=== PATIENT | male | born 1970 | race Two or more races ===

== ENCOUNTER 2020-01-29 11:41 | Day surgery (SDC) | payer OTHER, SELFPAY ==
[2020-01-09 11:35] VITALS: BMI 23.6
--- NOTE | 2020-01-15 09:49 | P.CONAN_ITS ---
HPI - Anesthesia Eval Consult details Narrative: 49yo M Upper Endoscopy and Colonoscopy [facility] Past Medical History Medical History GERD (gastroesophageal reflux disease) Surgical History Surgical History No significant past surgical history Social History Social History Smoking Status: Former smoker Meds Allergies Allergy/AdvReac Type Severity Reaction Status Date / Time No Known Allergies Allergy Unverified 01/09/20 11:33 [No Known Allergies*] Home Medications Medication Instructions Recorded Confirmed Type acetaminophen 1,000 mg PO QID PRN 01/09/20 01/09/20 History famotidine 40 mg PO DAILY 01/09/20 01/09/20 History multivitamin 1 cap PO DAILY 01/09/20 01/09/20 History Exam Exam Date and Time: January 15, 2020 0949 Height,Weight and Vital Signs: Height 5 ft 8 in Weight 70.307 kg Assessment and Plan Assessment Anesthesia Assessment: Chart Reviewed
--- NOTE | 2020-01-26 09:25 | HO.ANESPROP2 ---
Documented by User: Mary Cuadra 01/26/20 09:25 HPI - Anesthesia Eval Consult details Narrative: 49yo M for Upper Endoscopy and Colonoscopy [facility] Past Medical History Medical History GERD (gastroesophageal reflux disease) Surgical History Surgical History No significant past surgical history Social History Social History Smoking Status: Former smoker Smoking Quit Date: 07/2019 Use of substances other than those prescribed or required for medical reasons: No Advance Directives: No Advance Directives Information Provided: No Advance Directives on File: No Meds Allergies Allergy/AdvReac Type Severity Reaction Status Date / Time No Known Allergies Allergy Unverified 01/09/20 11:33 [No Known Allergies*] Home Medications Medication Instructions Recorded Confirmed Type acetaminophen 1,000 mg PO QID PRN 01/09/20 01/09/20 History multivitamin 1 cap PO DAILY 01/09/20 01/09/20 History Exam Exam Date and Time: January 26, 2020 0925 Height,Weight and Vital Signs: Height 5 ft 8 in Weight 70.307 kg Assessment and Plan Assessment Anesthesia Assessment: Chart Reviewed Documented by User: Kayla Sanchez 01/29/20 12:58 [facility] Past Medical History Medical History GERD (gastroesophageal reflux disease) Family History Family history of problems with anesthesia: No Surgical History Surgical History No significant past surgical history History of Problems with Anesthesia: No Social History Social History Smoking Status: Former smoker Smoking Quit Date: 07/2019 Use of substances other than those prescribed or required for medical reasons: No Advance Directives: No Advance Directives Information Provided: No Advance Directives on File: No Meds Allergies Allergy/AdvReac Type Severity Reaction Status Date / Time No Known Allergies Allergy Unverified 01/09/20 11:33 [No Known Allergies*] Home Medications Medication Instructions Recorded Confirmed Type acetaminophen 1,000 mg PO QID PRN 01/09/20 01/09/20 History multivitamin 1 cap PO DAILY 01/09/20 01/09/20 History Exam Height,Weight and Vital Signs: Vital Signs Temp Pulse Resp BP Pulse Ox 01/29/20 12:15 97.4 F 75 18 117/68 99 Airway Mallampati Class: I TM Dist: >3cm Neck ROM: Full Heart: RRR Lungs: CTAB Assessment and Plan Assessment Anesthesia Assessment: Anesthesia Plan Discussed and Chart Reviewed Final Anesthetic Review NPO: Yes ASA Class: II Final Preanesthetic Review: No Changes in Pt Med Stat, Meds/Allgs Chart Reviewed and Consent Obtained/Reviewed Patient Risk: Low Anesthetic Plan Anesthetic Plan: MAC: Disposition: Standard PACU
[2020-01-29 12:15] VITALS: BP 117/68; PULSE 75; RESP 18; TEMP 36.3; O2SAT 99
[2020-01-29] MEDS: Lactated Ringers 1,000 ML 100 ML IVCONT (12:18)
--- NOTE | 2020-01-29 12:19 | W.PM.OPN ---
Operative Note Operative Note Date of Service: 01/29/20 Narrative: Pre-op diagnosis: Colon cancer screening, GERD (on Nexium twice dailly and sucralfate 4 times a day) Procedure: FLEXIBLE TRANSORAL UPPER GASTROINTESTINAL ENDOSCOPY WITH BIOPSIES AND COLONOSCOPY TILL CECUM WITH BIOPSIES UPPER ENDOSCOPY Consent: Indications for the procedure and potential complications of bleeding, perforation, reaction to medications and missed diagnosis were discussed with the patient and informed consent was obtained. Instrument: Olympus GIF H 190 mid size upper endoscope Monitoring: Vital signs and clinical assessment, continuous EKG monitoring, Pulse oximetry, Carbon Dioxide monitoring and blood pressure monitoring were done throughout the procedure. Procedure: The patient was placed in the left lateral decubitis position and pre-procedure medications were administered and a bite block was placed. The endoscope was inserted into the mouth and advanced under direct vision to the third part of duodenum. A careful inspection was made as the upper endoscope was withdrawn including a retroflexed examination of the proximal stomach; Findings and interventions are described below. Findings: Larynx: Normal Esophagus: GE junction at 38 cms. No esophagitis or Mensah's. Biopsies were obtained from proximal esophagus to check for EOE.. Stomach: Patchy gastric erythema with a few antral erosions. Biopsies were obtained from the gastric antrum and body of the stomach. Grade 2 flap valve on retroflexed examination of the cardia. Duodenum: Normal bulb and descending duodenum Intervention: Biopsies as noted above COLONOSCOPY PROCEDURE NOTE Consent: Indications for the procedure and potential complications of bleeding, perforation, reaction to medications and missed diagnosis were discussed with the patient and informed consent was obtained. Instrument: Olympus PCF H 190 L variable stiffness pediatric colonoscope Monitoring: Vital signs and clinical assessment, intermittent blood pressure monitoring, continuous EKG monitoring, Pulse oximetry and Carbon Dioxide monitoring were done throughout the procedure. Colon withdrawl time was 22 minutes. Procedure: The patient was placed in the left lateral decubitis position and pre-procedure medications were administered. After a digital rectal examination of the ano-rectum, the video colonoscope was inserted into the rectum and advanced through the colon to the cecum. The colonoscope was slowly withdrawn in a retrograde panoramic fashion and the colon mucosa was carefully examined including a retroflexed view of the rectum. Findings and interventions are described below. Procedure Difficulty: Without difficulty Findings: Terminal Ileum: Not evaluated Cecum: Normal Ascending Colon: A 3-4 mm polyp removed with a cold biopsy Transverse Colon: Two 3-4 mm sessile polyps removed with a cold biopsy. Descending Colon: Normal Sigmoid Colon: Moderate diverticulosis Rectum: Normal Ano-rectum: Moderate internal hemorrhoids Colon preparation: Good after some irrigation Impression and Post Procedure Diagnosis: Endoscopy Findings: ESOPHAGUS: GE junction at 38 cms. No esophagitis or Mensah's. Biopsies were obtained from proximal esophagus to check for EOE. STOMACH: Patchy gastric erythema with a few antral erosions. Biopsies were obtained from the gastric antrum and body of the stomach. Colonoscopy Findings: Three small diminutive appearing polyps removed Moderate diverticulosis seen in the sigmoid colon Moderate hemorrhoids on retroflexed exam. Plan: Await pathology results Patient has an appointment on 02/27/20 in the GI Clinic with PATY Pond. Pt reports breakthrough symptoms despite taking Nexium twice daily and sucralfate 4 times daily. Advise further evaluation with impedance testing (Off PPI) to check for presence of GERD versus functional heartburn versus acid hypersensitivity as etiology for patient's persistent symptoms. Smoking is likely contributing to continuing symptoms despite high-dose PPI Repeat Colonoscopy interval based on path results - in 3-5 years if polyps are adenomatous and 10 years if polyps are hyperplastic. Above findings were reviewed with the patient and colon polyps and diverticulosis handouts were given in the discharge area Surgeon: Eduard Badillo MD Anesthesia: MAC (JUAN Sotomayor) Estimated blood loss (mL): 0 Pathology: other (A. Gastric antrum, B. Gastric body, C. Proximal esophagus, D. AC polyp x 1, E. TC polyps x 2) Condition: stable Disposition: PACU
--- NOTE | 2020-01-29 12:19 | MHC.SHP ---
Pre-Procedural Eval Section A The patient is an INPATIENT: No The History & Physical has been completed within 30 days and I have reviewed it.: No Section B Chief Complaint: GERD,SCREENING Details of Present Illness: A 49-year-old male years acid reflux worsening however the past year. lansoprazole 40 mg for about 3 years- Saw PCP years-last month He has increased to twice daily. Sucralfate-QID- seems to offer some relief. Frequent heartburn- he does have frequent nausea however he does not vomit. His appetite has not great. Is unable to worsens his symptoms. Tylenol prn-ear pain-has ENT appointment. He has nausea without vomiting no abdominal pain fever chills. He has a he has never a screening colonoscopy. Had EGD in [facility] greater than 5 years ago, no details, unsure of actual report. Relevant Social History: Tobacco Use Present Medications: see Short Stay Collaborative assessment Medical History: Significant History (GERD, anxiety) Allergies: Allergies Allergy/AdvReac Type Severity Reaction Status Date / Time No Known Allergies Allergy Unverified 01/09/20 11:33 [No Known Allergies*] Review of Systems Sugical H&P ROS: Negative: Constitution, Cardiovascular and Respiratory and Yes, Specify: Gastrointestinal (Heartburn) Exam Surgical H&P Exam: Normal: Heart, Normal: Lungs and Normal: Extremities Plan Diagnosis/Plan: Unchanged Patient has been examined and remains a candidate for the planned procedure
[2020-01-29 13:30] VITALS: BP 96/64; PULSE 55; RESP 16; TEMP 35.8; O2SAT 100
[2020-01-29 13:45] VITALS: BP 101/54; PULSE 65; RESP 16; TEMP 35.8; O2SAT 98
== END 2020-01-29 14:35 | disposition home or self-care (01) ==
PROVIDERS: PCP Internal Medicine; Visit Provider Internal Medicine Gastroenterology
PROC: (CPT 45380; principal; 2020-01-29 12:40)
DX: Z12.11 Encounter for screening for malignant neoplasm of colon (principal); D12.3 Benign neoplasm of transverse colon; K63.5 Polyp of colon; K57.30 Diverticulosis of large intestine without perforation or abscess without bleeding; K64.8 Other hemorrhoids; K29.70 Gastritis, unspecified, without bleeding; K21.9 Gastro-esophageal reflux disease without esophagitis; Z79.899 Other long term (current) drug therapy
CPT/HCPCS: 45380; 43239; 88305; 88342

== ENCOUNTER → 2020-02-28 11:25 | Outpatient (BNVA) | payer OTHER, SELFPAY | PROVIDERS: PCP Internal Medicine; Visit Provider Physician Assistant | DX: Z76.89 Persons encountering health services in other specified circumstances (principal) ==

== ENCOUNTER 2020-03-14 13:50 | Outpatient (REF) | payer OTHER, SELFPAY ==
--- NOTE | 2020-03-14 | US_ITS ---
EXAMINATION: US RETROPERITONEAL LIMITED (RENAL ONLY) CLINICAL INFORMATION: Abdominal pain. COMPARISON: None TECHNIQUE: Sonographic evaluation of the kidneys. FINDINGS: RIGHT KIDNEY: 11.9 x 4.9 x 6.3 cm (SAG x AP x TRV). The kidney is normal in size, contour, and echogenicity. Renal cortical thickness is normal. No calculi or focal parenchymal lesions. Mild fullness of the collecting system. LEFT KIDNEY: 11.1 x 5.2 x 5.2 cm (SAG x AP x TRV). The kidney is normal in size, contour, and echogenicity. Renal cortical thickness is normal. No calculi or focal parenchymal lesions. Mild fullness of the collecting system. US/US renal BI IMPRESSION: Mild calyceal fullness bilaterally. No calculi visualized.
== END 2020-03-14 13:51 | disposition home or self-care (01) ==
LOC: HO.HMGCX 13:50
PROVIDERS: PCP Internal Medicine; Visit Provider Internal Medicine
DX: R10.9 Unspecified abdominal pain (principal)
CPT/HCPCS: 76775

== ENCOUNTER → 2020-04-09 16:03 | Outpatient (BNVA) | payer OTHER, SELFPAY | PROVIDERS: PCP Internal Medicine; Visit Provider Internal Medicine Gastroenterology | DX: Z13.89 Encounter for screening for other disorder (principal) | CPT/HCPCS: Q3014 ==

== ENCOUNTER 2020-04-12 09:44 | Outpatient (REF) | payer OTHER, SELFPAY ==
--- NOTE | ~2020-04-12 | FL_ITS ---
EXAMINATION: FL BARIUM SWALLOW CLINICAL INFORMATION: Gastroesophageal reflux disease without esophagitis COMPARISON: None TECHNIQUE: Barium swallow examination is performed using fluoroscopic evaluation in addition to multiple fluoroscopic spot views. The patient is imaged both upright and prone and using both thick and thin sulfate along with effervescent granules. A barium tablet was also administered. Fluoroscopy time: 1.2 minutes DAP: 7.9 Gycm2 Images: 59 saved fluoroscopic images FINDINGS: The swallowing mechanism is normal. No aspiration or penetration is seen. Esophageal motility is normal. There is mild gastroesophageal reflux. There is a small sliding-type hiatal hernia. No mass or stricture is seen. Barium tablet passed the stomach. The visualized stomach and duodenum are unremarkable. FL/FL barium swallow IMPRESSION: Mild gastroesophageal reflux and small sliding-type hiatal hernia.
[2020-04-12 11:42] LABS: MANUAL DIFF FLAG NO
[2020-04-12 11:53] LABS: Basophils Absolute Auto 0.1 X10*3/uL (0.0-0.2); Basophils Percent Auto 0.8 % (0-2); Eosinophils Absolute Auto 0.3 X10*3/uL (0.0-0.4); Eosinophils Percent Auto 3.6 % (0-4); Hematocrit 39.9 % (42-52); Imm Gran Abs Auto 0.02 X10*3/uL (0.00-0.03); Imm Gran Pct Auto 0.3 % (0.0-0.4); Lymphocytes Absolute Auto 2.3 X10*3/uL (1.2-4.9); Lymphocytes Percent Auto 30.1 % (20-40); Mean Corpuscular HGB Conc 32.6 g/dl (31.0-36.0); Mean Corpuscular Hemoglobin 24.8 pg (27.0-33.0); Mean Platelet Volume 9.7 fL (9.4-12.4); Monocytes Absolute Auto 0.7 X10*3/uL (0.1-1.2); Neutrophils Absolute Auto 4.3 X10*3/uL (2.0-8.3); Neutrophils Percent Auto 56.2 % (45-73); Platelet Count 363 X10*3/uL (160-400); Red Blood Count 5.25 X10*6/uL (4.60-5.80); Red Cell Distribution Width 13.4 % (11.0-16.0); White Blood Count 7.6 X10*3/uL (4.8-10.8)
[2020-04-12 12:31] LABS: Vitamin D 25-OH Total 33.3 ng/mL (>30)
[2020-04-12 12:58] LABS: Alanine Aminotransferase 38 U/L (0-40); Albumin Level 4.5 g/dL (3.5-5.0); Alkaline Phosphatase 110 U/L (39-117); Anion Gap 13 (12-20); Aspartate Amino Transferase 23 U/L (5-37); Bilirubin Total 0.4 mg/dL (0.0-1.0); Blood Urea Nitrogen 9 mg/dL (9-16); Carbon Dioxide 29 mmol/L (22-29); Chloride 101 mmol/L (96-108); Estimated Glomerular Filt Rate > 60; Glucose Random 96 mg/dL (60-115); Potassium 4.1 mmol/L (3.3-5.1); Sodium 139 mmol/L (135-145); Total Protein 7.8 g/dL (6.5-8.0)
[2020-04-12 14:12] LABS: Folate 8.3 ng/mL (> or = 4.0); Vitamin B12 224 pg/mL (200-900)
== END 2020-04-12 09:45 | disposition home or self-care (01) ==
LOC: HO.XRAY 09:44
PROVIDERS: PCP Internal Medicine; Visit Provider Internal Medicine Gastroenterology
DX: K21.9 Gastro-esophageal reflux disease without esophagitis (principal); R14.0 Abdominal distension (gaseous)
CPT/HCPCS: 36415; 74220; 80053; 82306; 82607; 82746; 85025; 86140

== ENCOUNTER 2020-05-16 14:00 | Outpatient (RCR) | payer OTHER, SELFPAY ==
--- NOTE | 2020-05-09 12:57 | MHC.PT.EP ---
[facility] [place] Office [place] Office [place] Office [address] [phone] F: [phone] F: [phone] F: [phone] F: [phone] Physical Therapy Plan of Care Date of Evaluation: 05/09/20 Date of Surgery: n/a Diagnosis: neck pain/muscle spasm Assessment: Patient is a 49 year old R handed male who presents with s/s consistent with neck pain, neck spasm. 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 Patient past medical history includes anxiety, insomnia. Current impairments include pain, ROM, posture, activity tolerance and functional mobility. Functional limitations include decreased ability to sleep, turn head, drive, sit at computer, and work. Patient is motivated with good rehab potential. Skilled PT will address impairments and functional limitations in order to achieve goals. Frequency and Duration: The patient will be seen 2x/week for 4 weeks Short Term Goals: I with HEP - 2 weeks AROM rotation to 55 b/l - 3 weeks improved postural awareness - 3 weeks Halfway Goals: pain free work day - [address] pain free - 4 weeks sleep undisturbed from back pain - 4 weeks Treatment Plan: Modalities to reduce pain, spasms and effusion. Manual therapy to restore motion and function. Therapeutic exercise to improve strength and flexibility. Neuromuscular re-education for posture and balance. Therapeutic activities to return to functional activities of daily living. Electronically signed by: Onesimo Crawford, PT Please sign and return to therapist. Thank you for your referral.
--- NOTE | 2020-06-28 13:51 | MHC.PT.DC ---
[facility] [place] Office [place] Office [place] Office [address] [facility] [phone] F: [phone] F: [phone] F: [phone] F: [phone] Physical Therapy Discharge Report Diagnosis: neck pain/muscle spasm Date of Surgery: n/a Date of Evaluation: 05/09/20 Date of Discharge: 05/19/20 Treatments to Date: 3 Cancellations to Date: 0 No Shows to Date: 0 Discharge Status: Visit Non-compliance Discharge Summary: Inconsistent attendance, discharged as a result. Electronically signed by: Onesimo Crawford PT Please sign and return to therapist. Thank you for your referral.
== END 2020-07-06 10:48 | disposition home or self-care (01) ==
LOC: HO.PTCHIC 14:00
PROVIDERS: PCP Internal Medicine; Visit Provider Internal Medicine
DX: M62.838 Other muscle spasm (principal)
CPT/HCPCS: 97110; 97140; 97161

== ENCOUNTER → 2020-06-17 08:42 | Outpatient (BNVA) | payer OTHER, SELFPAY | PROVIDERS: PCP Internal Medicine; Visit Provider Internal Medicine Gastroenterology ==

== ENCOUNTER 2020-10-10 | Outpatient (REF) | payer OTHER, SELFPAY ==
[2020-10-14 14:42] LABS: OBS1 NEGATIVE (NEGATIVE); OBS2 NEGATIVE (NEGATIVE); OBS3 NEGATIVE (NEGATIVE)
[2020-10-14 14:43] LABS: OBS Int Ctl Valid YES; OBS Lot 50191
== END 2020-10-10 00:01 | disposition home or self-care (01) ==
LOC: HO.LNP
PROVIDERS: Visit Provider Internal Medicine Gastroenterology
DX: D50.9 Iron deficiency anemia, unspecified (principal)
CPT/HCPCS: 82270

== ENCOUNTER 2020-10-14 14:31 | Outpatient (REF) | payer OTHER, SELFPAY | END 2020-10-14 14:32 | disposition home or self-care (01) | LOC: HO.LNP 14:31 | PROVIDERS: Visit Provider Internal Medicine Gastroenterology | DX: Z13.89 Encounter for screening for other disorder (principal) ==

== ENCOUNTER 2020-11-13 12:07 | Outpatient (REF) | payer OTHER, SELFPAY ==
[2020-11-13 12:20] LABS: MANUAL DIFF FLAG NO
[2020-11-13 12:40] LABS: Basophils Absolute Auto 0.1 X10*3/uL (0.0-0.2); Basophils Percent Auto 1.1 % (0-2); Eosinophils Absolute Auto 0.3 X10*3/uL (0.0-0.4); Eosinophils Percent Auto 4.6 % (0-4); Hematocrit 39.6 % (42-52); Hemoglobin 13.1 g/dl (14.0-18.0); Imm Gran Abs Auto 0.02 X10*3/uL (0.00-0.03); Imm Gran Pct Auto 0.3 % (0.0-0.4); Lymphocytes Absolute Auto 2.8 X10*3/uL (1.2-4.9); Lymphocytes Percent Auto 37.8 % (20-40); Mean Corpuscular HGB Conc 33.1 g/dl (31.0-36.0); Mean Corpuscular Hemoglobin 25.4 pg (27.0-33.0); Mean Corpuscular Volume 76.9 fL (80-98); Mean Platelet Volume 9.8 fL (9.4-12.4); Monocytes Absolute Auto 0.6 X10*3/uL (0.1-1.2); Monocytes Percent Auto 8.2 % (2-11); Neutrophils Absolute Auto 3.6 X10*3/uL (2.0-8.3); Platelet Count 323 X10*3/uL (160-400); Red Blood Count 5.15 X10*6/uL (4.60-5.80); Red Cell Distribution Width 13.6 % (11.0-16.0); White Blood Count 7.4 X10*3/uL (4.8-10.8)
[2020-11-13 13:02] LABS: Iron 106 mcg/dL (45-160); Percent Iron Saturation 33 % (15-50); Total Iron Binding Capacity 323 mcg/dL (228-428); Unsaturated Iron Binding 217 ug/dL
[2020-11-13 13:37] LABS: Ferritin 90 ng/mL (20-250)
== END 2020-11-13 12:08 | disposition home or self-care (01) ==
LOC: HO.LAB 12:07
PROVIDERS: PCP Internal Medicine; Visit Provider Internal Medicine Gastroenterology
DX: D50.9 Iron deficiency anemia, unspecified (principal)
CPT/HCPCS: 36415; 82728; 83540; 85025

== ENCOUNTER → 2020-12-16 08:58 | Outpatient (BNVA) | payer OTHER, SELFPAY | PROVIDERS: PCP Internal Medicine; Referring Provider Internal Medicine; Visit Provider Internal Medicine Gastroenterology ==

== ENCOUNTER 2021-10-30 15:22 | Outpatient (REF) | payer OTHER, SELFPAY ==
--- NOTE | ~2021-10-30 | US_ITS ---
EXAMINATION: US VENOUS ULTRASOUND WITH DOPPLER LOWER EXTREMITY, BILATERAL CLINICAL INFORMATION: Bilateral leg pain COMPARISON: None TECHNIQUE: Ultrasound of the deep veins is performed from the hip to the calf with compression sonography and color and pulse Doppler assessment. Spectral analysis with color-flow imaging is performed. FINDINGS: RIGHT: There is normal venous compression and respiratory variation and augmented flow. The visualized common femoral vein, superficial femoral vein, profunda femoral vein, popliteal vein, and the trifurcation region shows no evidence of deep venous thrombosis. There is no significant popliteal fossa cyst. Mildly prominent lymph node in the right inguinal region which measures approximately 2.0 x 2.1 x 0.6 cm, nonspecific. LEFT: There is normal venous compression and respiratory variation and augmented flow. The visualized common femoral vein, superficial femoral vein, profunda femoral vein, popliteal vein, and the trifurcation region shows no evidence of deep venous thrombosis. There is no significant popliteal fossa cyst. Mildly prominent lymph node in the left inguinal region which measures approximately 1.5 x 2.3 x 0.6 cm, nonspecific. If the patient's symptoms persist, followup ultrasound in 5 days 7 days might be of value to exclude proximal propagation from a non-visualized calf vein. US/US venous duplex LE BI IMPRESSION: No DVT demonstrated in the bilateral lower extremity.
== END 2021-10-30 15:23 | disposition home or self-care (01) ==
LOC: HO.US 15:22
PROVIDERS: PCP Internal Medicine; Visit Provider Internal Medicine
DX: M79.651 Pain in right thigh (principal); M79.652 Pain in left thigh
CPT/HCPCS: 93970

== ENCOUNTER 2022-03-20 15:32 | Outpatient (REF) | payer OTHER, SELFPAY ==
--- NOTE | ~2022-03-20 | CT_ITS ---
EXAMINATION: CT CHEST SCREENING CLINICAL INFORMATION: Current smoker 30-pack years. COMPARISON: None. TECHNIQUE: Multidetector volumetric CT imaging of the chest is performed without contrast using low dose technique. Additional 2D coronal and sagittal reformatted images and axial 3D maximum intensity projection (MIP) images are generated on the CT workstation. This CT examination was performed using dose optimization techniques as appropriate, variously including the following: *Automated exposure control *Adjustment of mA and/or kV according to patient size (this includes techniques or standardized protocols for targeted exams where dose is matched to indication/reason for exam; i.e. extremities or head) *Use of iterative reconstruction technique DLP: 42 mGy-cm. FINDINGS: LUNGS: The lungs are well expanded and clear of acute pneumonic process. A 3 mm calcified nodule is seen in medial lingula. There is 6 mm subpleural nodule left lung apex image 7/6, a 3 mm nodule right lung apex posteriorly image 6/4, a subpleural 5 mm nodule right lung apex image 9/4, and a subpleural, nodule left upper lobe laterally image 14/4. Minimal bilateral apical parenchymal scarring is visualized. MEDIASTINUM: The thyroid lobes are symmetric and normal. Central trachea and the bronchi are widely patent. The heart size and great vessels are normal caliber. No pericardial effusion seen. No abnormal-sized mediastinal or hilar lymph nodes seen. No pericardial effusion. CORONARY ARTERY CALCIFICATION: None visualized on this study. PLEURA: There is bilateral apical pleural thickening. No pleural effusion, calcified pleural plaques or nodularity. AXILLA: Small shotty lymph nodes in the axilla. UPPER ABDOMEN: Visualized liver, spleen, gallbladder and adrenal glands including pancreas are unremarkable. OSSEOUS STRUCTURES: No lytic or sclerotic process seen. CT/CT lung screening IMPRESSION: Bilateral subpleural nodules measuring 6 mm and less. ASSESSMENT: Lung-RADS category 2: Benign. RECOMMENDATION: Low-dose annual CT chest.
== END 2022-03-20 15:33 | disposition home or self-care (01) ==
LOC: HO.CT 15:32
PROVIDERS: PCP Internal Medicine; Visit Provider Physician Assistant Medical
DX: Z12.2 Encounter for screening for malignant neoplasm of respiratory organs (principal); F17.210 Nicotine dependence, cigarettes, uncomplicated
CPT/HCPCS: 71271; G0296

== ENCOUNTER 2022-10-12 10:29 | Outpatient (REF) | payer OTHER, SELFPAY ==
[2022-10-12 13:56] LABS: MANUAL DIFF FLAG NO
[2022-10-12 14:03] LABS: Basophils Absolute Auto 0.1 X10*3/uL (0.0-0.2); Basophils Percent Auto 1.4 % (0-2); Eosinophils Absolute Auto 0.4 X10*3/uL (0.0-0.4); Eosinophils Percent Auto 5.8 % (0-4); Hematocrit 41.2 % (42.0-52.0); Hemoglobin 13.5 g/dl (14.0-18.0); Imm Gran Abs Auto 0.02 X10*3/uL (0.00-0.03); Imm Gran Pct Auto 0.3 % (0.0-0.4); Lymphocytes Absolute Auto 3.2 X10*3/uL (1.2-4.9); Lymphocytes Percent Auto 41.5 % (20-40); Mean Corpuscular HGB Conc 32.8 g/dl (31.0-36.0); Mean Corpuscular Volume 76.4 fL (80.0-98.0); Mean Platelet Volume 11.3 fL (9.4-12.4); Monocytes Absolute Auto 0.7 X10*3/uL (0.1-1.2); Monocytes Percent Auto 9.7 % (2-11); Neutrophils Absolute Auto 3.2 x10*3/uL (2.0-8.3); Neutrophils Percent Auto 41.3 % (45-73); Platelet Count 291 X10*3/uL (160-400); Red Blood Count 5.39 X10*6/uL (4.60-5.80); White Blood Count 7.6 X10*3/uL (4.8-10.8)
[2022-10-12 14:10] LABS: Estimated Average Glucose 108 mg/dL; Hemoglobin A1c % 5.4 % (<6.0)
[2022-10-12 14:12] LABS: Anion Gap 12 (12-20); Carbon Dioxide 29 mmol/L (22-29); Chloride 104 mmol/L (96-108); Potassium 3.7 mmol/L (3.3-5.1); Sodium 141 mmol/L (135-145)
[2022-10-12 14:22] LABS: Alanine Aminotransferase 55 U/L (0-40); Albumin Level 4.4 g/dL (3.5-5.0); Alkaline Phosphatase 80 U/L (39-117); Anion Gap 11 (12-20); Aspartate Amino Transferase 39 U/L (5-37); Bilirubin Direct 0.2 mg/dL (0.0-0.5); Bilirubin Total 0.7 mg/dL (0.0-1.0); Blood Urea Nitrogen 12 mg/dL (9-16); Calcium 9.6 mg/dL (8.4-10.2); Carbon Dioxide 29 mmol/L (22-29); Chloride 105 mmol/L (96-108); Cholesterol 222 mg/dL (<200); Estimated Glomerular Filt Rate > 60; Glucose Fasting 86 mg/dL (60-99); HDL Cholesterol 41 mg/dL (>40); LDL Cholesterol Calculated 131 mg/dL (<100); Potassium 3.8 mmol/L (3.3-5.1); Sodium 141 mmol/L (135-145); Triglycerides 251 mg/dL (<150)
[2022-10-12 14:33] LABS: Prostate Specific Antigen 0.25 ng/mL (<0.05-4.0)
[2022-10-12 14:37] LABS: TSH reflex Free T4 1.63 uIU/mL (0.32-4.0)
[2022-10-13 04:21] LABS: ~HepC Num1 0.11 S/CO (0.00-0.79); ~Hepatitis C Antibody Nonreactive (Nonreactive)
[2022-10-15 18:28] LABS: HIV RNA PCR Qn Copies Not Detected Copies/mL; HIV RNA PCR Qn Log Copies Not Detected Log cps/mL
== END 2022-10-12 10:30 | disposition home or self-care (01) ==
LOC: HO.CHCLDS 10:29
PROVIDERS: Visit Provider Internal Medicine
DX: Z12.5 Encounter for screening for malignant neoplasm of prostate (principal); Z11.4 Encounter for screening for human immunodeficiency virus [HIV]; K21.9 Gastro-esophageal reflux disease without esophagitis
CPT/HCPCS: 36415; 80048; 80051; 80061; 80076; 83036; 84153; 84443; 85025; 86803; 87536; 87900

== ENCOUNTER 2022-10-15 15:32 | Outpatient (REF) | payer OTHER, SELFPAY ==
--- NOTE | ~2022-10-15 | CT_ITS ---
EXAMINATION: CT CHEST SCREENING CLINICAL INFORMATION: 6 mm nodule left lung apex. Six-month repeat with low-dose. COMPARISON: CT chest 03/20/2022. TECHNIQUE: Multidetector volumetric CT imaging of the chest is performed without contrast using low dose technique. Additional 2D coronal and sagittal reformatted images and axial 3D maximum intensity projection (MIP) images are generated on the CT workstation. This CT examination was performed using dose optimization techniques as appropriate, variously including the following: *Automated exposure control *Adjustment of mA and/or kV according to patient size (this includes techniques or standardized protocols for targeted exams where dose is matched to indication/reason for exam; i.e. extremities or head) *Use of iterative reconstruction technique DLP: 42 mGy-cm. FINDINGS: LUNGS: A 7 mm nodule left lung apex is stable on axial image 13/4, 3 mm nodule and a 5 mm subpleural-based nodule in the right lung apex, visualized but slightly ill-defined, may be secondary to resolution. They are likely stable in size. There is mild bilateral apical pleural thickening and parenchymal scarring. There is a 2 mm calcification of the left infrahilar region axial image 246/6, stable. No new noncalcified nodules seen. MEDIASTINUM: Thyroid lobes are symmetrical and normal. The central trachea and bronchi are widely patent. Heart size and the great vessels are normal caliber. No pericardial effusion seen. No abnormal size lymph nodes. CORONARY ARTERY CALCIFICATION: None visualized on this study. PLEURA: There is no pleural effusion. No pleural mass or thickening. AXILLA: Small shotty lymph nodes are seen in the axilla. UPPER ABDOMEN: Visualized liver, spleen and pancreas are unremarkable. OSSEOUS STRUCTURES: No aggressive lytic or sclerotic process seen. CT/CT lung screen follow up IMPRESSION: 1. Stable bilateral apical pulmonary nodules. The larger nodules (3 mm and 5 mm) are suboptimally visualized likely due to decreased resolution on the screening exam. The 7 mm nodule is stable. No new nodules seen. 2. Stable 2 mm calcification in the left infrahilar region. ASSESSMENT: Lung-RADS category 2: Benign. RECOMMENDATION: Low-dose annual CT chest.
== END 2022-10-15 15:33 | disposition home or self-care (01) ==
LOC: HO.CT 15:32
PROVIDERS: PCP Internal Medicine; Visit Provider Physician Assistant Medical
DX: Z12.2 Encounter for screening for malignant neoplasm of respiratory organs (principal); F17.210 Nicotine dependence, cigarettes, uncomplicated
CPT/HCPCS: 71250

== ENCOUNTER 2022-10-23 10:42 | Outpatient (AMB) | payer OTHER, SELFPAY ==
--- NOTE | 2022-10-23 10:45 | A.OFFVIS_ITS ---
Intake Intake Visit Reasons: Medication Renewal. Intake Note: Patient is present for medication renewal Reports no new medications Patient currently has no complaints or issues Allergies house dust Allergy (Mild, Verified 10/23/22 10:54) Unknown mold Allergy (Mild, Verified 10/23/22 10:54) unknown pollen extracts Allergy (Mild, Verified 10/23/22 10:54) unknown Medication List - Last Reconciled 10/23/22 by Eduard Badillo MD cyclosporine 0.05% drps ophthalmic (eye) BID dexlansoprazole 60 mg PO DAILY 30 days docusate sodium (Colace) 100 mg PO BID loratadine (Claritin) 10 mg PO DAILY multivitamin 1 cap PO DAILY sennosides-docusate sodium 8.6-50 mg (Senna Plus) 1 tab-cap PO BEDTIME 1 month HPI Medication Renewal. HPI Details GI CLINIC VISIT FOR THIS 52-YEAR-OLD MALE FOR FOLLOW-UP OF GERD, ABDOMINAL BLOATING AND GAS. Patient returns after a hiatus of 2 years. IMAGING STUDIES:? 04/12/20 BARIUM SWALLOW SHOWED: The swallowing mechanism is normal. No aspiration or penetration is seen. Esophageal motility is normal. There is mild gastroesophageal reflux. There is a small sliding-type hiatal hernia. No mass or stricture is seen. Barium tablet passed the stomach. The visualized stomach and duodenum are unremarkable. ENDOSCOPIC STUDIES: 01/2020 EGD AND COLONOSCOPY SHOWED Endoscopy Findings:? ESOPHAGUS: GE junction at 38 cms.? No esophagitis or Emnsah's.? Biopsies were obtained from proximal esophagus to check for EOE. STOMACH: Patchy gastric erythema with a few antral erosions. Biopsies were obtained from the gastric antrum and body of the stomach. Colonoscopy Findings:? Three small diminutive appearing polyps removed Moderate diverticulosis seen in the sigmoid colon Moderate hemorrhoids on retroflexed exam. Plan:? Patient has an appointment on 02/27/20 in the GI Clinic with PATY Pond. Pt reports breakthrough symptoms despite taking Nexium twice daily and sucralfate 4 times daily. Advise further evaluation with impedance testing (Off PPI) to check for presence of GERD versus functional heartburn versus acid hypersensitivity as etiology for patient's persistent symptoms. Smoking is likely contributing to continuing symptoms despite high-dose PPI Repeat Colonoscopy interval based on path results - in 3-5 years if polyps are adenomatous and 10 years if polyps are hyperplastic. Above findings were reviewed with the patient and colon polyps and diverticulosis handouts were given in the discharge area BIOPSIES SHOWED: A.? Stomach, antrum, biopsy:? Antral-type mucosa with moderate chronic inactive inflammation and intestinal metaplasia; no dysplasia seen; no Helicobacter organisms seen. B.? Stomach, body, biopsy:? Oxyntic mucosa with moderate chronic inactive infl ammation and intestinal metaplasia; no dysplasia seen; no Helicobacter organisms seen.? See comment. C.? Esophagus, proximal, biopsy:? Squamous epithelium within normal limits; no inflammation seen; diagnostic features of eosinophilic esophagitis not seen. D.? Colon, ascending, polypectomy:? Clinically polypoid colonic mucosa within normal limits. E.? colon, transverse, polypectomies:? Tubular adenomas (two); no high grade dysplasia or carcinoma seen. COMMENT: In part B, there is a fragment of mucosa completely intestinalized; it is difficult to determine if this is sampling from the body/fundus or cardia/antrum.? If indeed sampled from the body/fundus, a degree of atrophy may be present. TODAY'S VISIT: Taking Dexilant 60 mg once a day with adequate control of heartburn Concerned about elevated LFTs Remote hx of Jaundice - does not know the cause Mom has fatty liver PAST VISITS: Notes symptoms if he forgets to take it. Notes some bleeding if stools are hard. Feels Ok since he increased Dexilant to twice daily. Also taking Miralax and Isabghol once daily Continues to have intermittent bloating. Has a BM almost every day. ADDENDUM 04/29/20 : Pt called and lab and barium swallow results were reviewed with him. Pt complains of indigestion.? Bloating has improved since he started taking Miralax daily and has a BM once a day. He is also taking Psyllium daily. He changed his diet and is taking 3-4 meals a day and taking papaya. Mild chronic iron deficiency anemia - patient was advised to start iron pills 3 times a week and take iron rich foods. He complains of continuing heartburn and was advised to increase lansoprazole to 30 mg twice daily. throat full of gas - feels gas and acid on the throat Pt states very bad acid reflux, burps smell very bad like poop, sometimes bloating, hard stools and I cannot eat anything. Notes burning sensation in the upper abdomen and chest, bloating and gas. Denies dysphagia. Had some beef 2 days ago Symptoms are worse at night - has dinner at 11pm and goes to bed at 1 am. Has intermittent dry cough. Denies early satiety. He was taking sucralfate Takes Gas X for bloating which helps Intermittent bloating - sometimes after exercising. For the past 2 weeks, has has noticed foul smelling gas. Has a BM daily, BM are hard and associated with straining. Takes a fibre supplement (Isbghol) every morning and walks 45 min. Patient denies black stools or rectal bleeding. Denies change in appetite or weight. Patient denies known family history of colon polyps, colon cancer or other GI malignancy PFSH Medical History (Updated 10/23/22 @ 11:16 by Eduard Badillo MD) Nicotine dependence, cigarettes, uncomplicated Insomnia Tubular adenoma of colon (~2019) GERD (gastroesophageal reflux disease) Surgical History (Updated 01/22/22 @ 13:51 by Gill Rojas PA-C) History of colonoscopy History of esophagogastroduodenoscopy (EGD) Social History (Updated 03/20/22 @ 15:29 by Gill Rojas PA-C) Household Members: Spouse and Children Alcohol intake: current Alcohol intake frequency: does not drink Tobacco use type: Cigarette Years Smoked: onset 17yo, 1/2-3/4ppd x 34yrs, now 1/2ppd - 20pyh Review of Systems Const All systems reviewed & are unremarkable except as noted in HPI and below Physical Exam Const General: healthy appearing and no acute distress Nutritional Appearance: average body habitus Orientation/consciousness: patient oriented x3 Limitations: no limitations HEENT Head: Yes normal to inspection Ears: hearing grossly normal bilaterally Eyes Sclerae: sclerae normal Pupils: Equal, round and reactive pupils present Neck Neck: Yes normal visual inspection Chest Chest palpation & inspection: normal inspection of the chest Resp Effort & Inspection: normal respiratory effort Auscultation: clear to auscultation bilaterally Cardio Palpation: normal PMI Rate: regular rate Rhythm: regular rhythm Heart sounds: S1 normal heart sound present, S2 normal heart sound present and no murmurs GI Palpation (GI): Soft to palpation, nontender and No hepatosplenomegaly present Auscultation: normal bowel sounds Rectal Exam - Male: Yes deferred Skin General skin exam: no rashes or lesions noted Neuro General: patient oriented x3, gait normal and moves all extremities Cranial nerves: Yes Equal, round and reactive pupils present Psych Appearance: grossly normal Mental Status: mental status grossly normal Assessment & Plan Assessment & Plan (1) Iron deficiency anemia: Code(s): D50.9 - Iron deficiency anemia, unspecified (2) GERD (gastroesophageal reflux disease): Comment: (GERD/sliding hiatal hernia noted on 04/2020 Barium swallow) Code(s): K21.9 - Gastro-esophageal reflux disease without esophagitis (3) Tubular adenoma of colon: Onset Date: ~2019 Comment: (TA on 2019 scope) - due for FU colon in 2024 Code(s): D12.6 - Benign neoplasm of colon, unspecified (4) Chronic constipation: Code(s): K59.09 - Other constipation (5) Abdominal bloating: Code(s): R14.0 - Abdominal distension (gaseous) (6) Elevated LFTs: Code(s): R79.89 - Other specified abnormal findings of blood chemistry Plan 52 year-old male with acid reflux, foul smelling gas and bloating. He notes heartburn if he forgets to take Dexilant. Pt also complains of chronic constipation. Patient's symptoms are likely due to constipation predominant IBS.? Other possibilities include small bowel bacterial overgrowth. He was advised to start Senna+ Manuel three times a week and continue to take MiraLax daily for constipation. 10/23/22 Labs showed mildly elevated LFTs. Patient admits to gaining some weight. I will check hepatitis serologies, abd US and workup for metabolic causes of chronic liver disease Follow-up appointment in 4 months. Orders: Orders JENNIE Reflex Titer and Pattern Today R79.89 - Other specified abnormal findings of blood chemistry Hepatitis A IgG Today R79.89 - Other specified abnormal findings of blood chemistry Hepatitis B Core Antibody Today R79.89 - Other specified abnormal findings of blood chemistry Ferritin Today R79.89 - Other specified abnormal findings of blood chemistry IRON PROFILE Today R79.89 - Other specified abnormal findings of blood chemistry Hepatitis B Surface Antibody Today R79.89 - Other specified abnormal findings of blood chemistry Hepatitis B Surface Antigen Today R79.89 - Other specified abnormal findings of blood chemistry Hepatitis C Antibody Today R79.89 - Other specified abnormal findings of blood chemistry US abdomen complete Today R79.89 - Other specified abnormal findings of blood chemistry Medications: Changed From dexlansoprazole 60 mg PO DAILY 30 days 30 caps 4RF K21.9 - Gastro- esophageal reflux disease without esophagitis To dexlansoprazole 60 mg PO DAILY 60 days 60 caps 2RF K21.9 - Gastro-esophageal reflux disease without esophagitis Coding Level of Care Code Est Pt Level 4 (29760) Diagnoses Iron deficiency anemia D50.9 GERD (gastroesophageal reflux disease) K21.9 Tubular adenoma of colon D12.6 Chronic constipation K59.09 Abdominal bloating R14.0 Elevated LFTs R79.89 Time Spent (min) 25
== END 2022-10-23 11:19 | disposition home or self-care (01) ==
PROVIDERS: Visit Provider Internal Medicine Gastroenterology
DX: D50.9 Iron deficiency anemia, unspecified (principal); K21.9 Gastro-esophageal reflux disease without esophagitis; D12.6 Benign neoplasm of colon, unspecified; K59.09 Other constipation; R14.0 Abdominal distension (gaseous); R79.89 Other specified abnormal findings of blood chemistry
CPT/HCPCS: 99214

== ENCOUNTER → 2022-10-23 10:42 | Outpatient (BNVA) | payer OTHER, SELFPAY | PROVIDERS: Visit Provider Internal Medicine Gastroenterology | DX: D50.9 Iron deficiency anemia, unspecified (principal); K21.9 Gastro-esophageal reflux disease without esophagitis; K59.09 Other constipation; R14.0 Abdominal distension (gaseous); R79.89 Other specified abnormal findings of blood chemistry; Z86.010 Personal history of colon polyps | CPT/HCPCS: 99212 ==

== ENCOUNTER 2022-12-18 14:00 | Outpatient (REF) | payer OTHER, SELFPAY ==
[2022-12-18 15:19] LABS: Influenza A PCR NEGATIVE (Negative); Influenza B PCR NEGATIVE (Negative); Resp Syncy Virus RNA Qual PCR NEGATIVE (Negative); SARS COV2 PCR INHOUSE NEGATIVE (Negative)
== END 2022-12-18 14:01 | disposition home or self-care (01) ==
LOC: HO.CHCLNP 14:00
PROVIDERS: Visit Provider Family Medicine
DX: Z11.52 Encounter for screening for COVID-19 (principal); R05.9 Cough, unspecified
CPT/HCPCS: 0241U

== ENCOUNTER 2023-02-25 12:33 | Outpatient (AMB) | payer OTHER, SELFPAY ==
--- NOTE | 2023-02-25 12:34 | A.OFFVIS_ITS ---
Intake Vital Signs 02/25/23 12:39 Height 5 ft 8 in Weight 163 lb BMI 24.8 BP 126/76 Blood Pressure Location Lt brachial Position Sitting Pulse 76 Intake Visit Reasons: 4 month follow Intake Note: Patient follow up for abdominal bloating. Patient cc: acid reflex at nighttime. Denies any other GI issues. Toilet Products Molder Required: No Accompanied by: Self / Same As Patient Allergies house dust Allergy (Mild, Verified 02/25/23 12:38) Unknown mold Allergy (Mild, Verified 02/25/23 12:38) unknown pollen extracts Allergy (Mild, Verified 02/25/23 12:38) unknown HPI 4 month follow HPI Details GI CLINIC VISIT FOR THIS 52-YEAR-OLD MALE FOR FOLLOW-UP OF GERD, ABDOMINAL BLOATING AND GAS. Patient returned after a hiatus of 2 years on his last visit. IMAGING STUDIES:? 04/12/20 BARIUM SWALLOW SHOWED: The swallowing mechanism is normal. No aspiration or penetration is seen. Esophageal motility is normal. There is mild gastroesophageal reflux. There is a small sliding-type hiatal hernia. No mass or stricture is seen. Barium tablet passed the stomach. The visualized stomach and duodenum are unremarkable. ENDOSCOPIC STUDIES: 01/2020 EGD AND COLONOSCOPY SHOWED Endoscopy Findings:? ESOPHAGUS: GE junction at 38 cms.? No esophagitis or Mensah's.? Biopsies were obtained from proximal esophagus to check for EOE. STOMACH: Patchy gastric erythema with a few antral erosions. Biopsies were obtained from the gastric antrum and body of the stomach. Colonoscopy Findings:? Three small diminutive appearing polyps removed Moderate diverticulosis seen in the sigmoid colon Moderate hemorrhoids on retroflexed exam. Plan:? Patient has an appointment on 02/27/20 in the GI Clinic with PATY Pond. Pt reports breakthrough symptoms despite taking Nexium twice daily and sucralfate 4 times daily. Advise further evaluation with impedance testing (Off PPI) to check for presence of GERD versus functional heartburn versus acid hypersensitivity as etiology for patient's persistent symptoms. Smoking is likely contributing to continuing symptoms despite high-dose PPI Repeat Colonoscopy interval based on path results - in 3-5 years if polyps are adenomatous and 10 years if polyps are hyperplastic. Above findings were reviewed with the patient and colon polyps and diverticulosis handouts were given in the discharge area BIOPSIES SHOWED: A.? Stomach, antrum, biopsy:? Antral-type mucosa with moderate chronic inactive inflammation and intestinal metaplasia; no dysplasia seen; no Helicobacter organisms seen. B.? Stomach, body, biopsy:? Oxyntic mucosa with moderate chronic inactive inflammation and intestinal metaplasia; no dysplasia seen; no Helicobacter organisms seen.? See comment. C.? Esophagus, proximal, biopsy:? Squamous epithelium within normal limits; no inflammation seen; diagnostic features of eosinophilic esophagitis not seen. D.? Colon, ascending, polypectomy:? Clinically polypoid colonic mucosa within normal limits. E.? colon, transverse, polypectomies:? Tubular adenomas (two); no high grade dysplasia or carcinoma seen. COMMENT: In part B, there is a fragment of mucosa completely intestinalized; it is difficult to determine if this is sampling from the body/fundus or cardia/antrum.? If indeed sampled from the body/fundus, a degree of atrophy may be present. TODAY'S VISIT: Forgot to do the abd us and lab tests for FU of elevated LFTs. Heartburn is controlled as long as he takes Dexilant Would like to discontinue PPI if possible - option for surgery and life style modifications Taking Honey, apple cider vinegar and lemon juice every morning PAST VISITS: Taking Dexilant 60 mg once a day with adequate control of heartburn Concerned about elevated LFTs Remote hx of Jaundice - does not know the cause Mom has fatty liver Notes symptoms if he forgets to take it. Notes some bleeding if stools are hard. Feels Ok since he increased Dexilant to twice daily. Also taking Miralax and Isabghol once daily Continues to have intermittent bloating. Has a BM almost every day. ADDENDUM 04/29/20 : Pt called and lab and barium swallow results were reviewed with him. Pt complains of indigestion.? Bloating has improved since he started taking Miralax daily and has a BM once a day. He is also taking Psyllium daily. He changed his diet and is taking 3-4 meals a day and taking papaya. Mild chronic iron deficiency anemia - patient was advised to start iron pills 3 times a week and take iron rich foods. He complains of continuing heartburn and was advised to increase lansoprazole to 30 mg twice daily. throat full of gas - feels gas and acid on the throat Pt states very bad acid reflux, burps smell very bad like poop, sometimes bloating, hard stools and I cannot eat anything. Notes burning sensation in the upper abdomen and chest, bloating and gas. Denies dysphagia. Had some beef 2 days ago Symptoms are worse at night - has dinner at 11pm and goes to bed at 1 am. Has intermittent dry cough. Denies early satiety. He was taking sucralfate Takes Gas X for bloating which helps Intermittent bloating - sometimes after exercising. For the past 2 weeks, has has noticed foul smelling gas. Has a BM daily, BM are hard and associated with straining. Takes a fibre supplement (Isbghol) every morning and walks 45 min. Patient denies black stools or rectal bleeding. Denies change in appetite or weight. Patient denies known family history of colon polyps, colon cancer or other GI malignancy [facility] Medical History (Updated 10/23/22 @ 11:16 by Eduard Badillo MD) Nicotine dependence, cigarettes, uncomplicated Insomnia Tubular adenoma of colon (~2019) GERD (gastroesophageal reflux disease) Surgical History History of colonoscopy History of esophagogastroduodenoscopy (EGD) Social History Household Members: Spouse and Children Alcohol intake: current Alcohol intake frequency: does not drink Tobacco use type: Cigarette Years Smoked: onset 17yo, 1/2-3/4ppd x 33yrs, now 1/2ppd - 20pyh Review of Systems Const All systems reviewed & are unremarkable except as noted in HPI and below Physical Exam Vital Signs: Last Vital Signs Pulse 76 02/25/23 12:39 BP 126/76 02/25/23 12:39 BMI result Body Mass Index 24.8 Const General: healthy appearing and no acute distress Nutritional Appearance: average body habitus Orientation/consciousness: patient oriented x3 Limitations: no limitations HEENT Head: Yes normal to inspection Ears: hearing grossly normal bilaterally Eyes Sclerae: sclerae normal Pupils: Equal, round and reactive pupils present Neck Neck: Yes normal visual inspection Chest Chest palpation & inspection: normal inspection of the chest Resp Effort & Inspection: normal respiratory effort Auscultation: clear to auscultation bilaterally Cardio Palpation: normal PMI Rate: regular rate Rhythm: regular rhythm Heart sounds: S1 normal heart sound present, S2 normal heart sound present and no murmurs GI Palpation (GI): Soft to palpation, nontender and No hepatosplenomegaly present Auscultation: normal bowel sounds Rectal Exam - Male: Yes deferred Skin General skin exam: no rashes or lesions noted Neuro General: patient oriented x3, gait normal and moves all extremities Cranial nerves: Yes Equal, round and reactive pupils present Psych Appearance: grossly normal Mental Status: mental status grossly normal Assessment & Plan Assessment & Plan (1) Elevated LFTs: Code(s): R79.89 - Other specified abnormal findings of blood chemistry (2) Iron deficiency anemia: Code(s): D50.9 - Iron deficiency anemia, unspecified (3) GERD (gastroesophageal reflux disease): Comment: (GERD/sliding hiatal hernia noted on 04/2020 Barium swallow) Code(s): K21.9 - Gastro-esophageal reflux disease without esophagitis (4) Tubular adenoma of colon: Onset Date: ~2019 Comment: (TA on 2019 scope) - due for FU colon in 2024 Code(s): D12.6 - Benign neoplasm of colon, unspecified (5) Chronic constipation: Code(s): K59.09 - Other constipation (6) Abdominal bloating: Code(s): R14.0 - Abdominal distension (gaseous) Plan 52 year-old male with acid reflux, foul smelling gas and bloating. He notes heartburn if he forgets to take Dexilant. Pt also complains of chronic constipation. Patient's symptoms are likely due to constipation predominant IBS.? Other possibilities include small bowel bacterial overgrowth. He was advised to start Senna+ Manuel three times a week and continue to take MiraLax daily for constipation. 10/23/22 Labs showed mildly elevated LFTs. Patient admits to gaining some weight. I will check hepatitis serologies, abd US and workup for metabolic causes of chronic liver disease 02/25/23 - pt advised to have above labs and abd US - forgot his appt for the US Pt Handout from [facility] on GERD (Beyond the Basics) given to the patient. Follow-up appointment in 3 months. Orders: Orders Prothrombin Time INR Today R79.89 - Other specified abnormal findings of blood chemistry Complete Blood Count Auto Diff Today R79.89 - Other specified abnormal findings of blood chemistry Liver Panel Today R79.89 - Other specified abnormal findings of blood chemistry Coding Level of Care Code Est Pt Level 4 (55571) Diagnoses Elevated LFTs R79.89 Iron deficiency anemia D50.9 GERD (gastroesophageal reflux disease) K21.9 Tubular adenoma of colon D12.6 Chronic constipation K59.09 Abdominal bloating R14.0 Time Spent (min) 18
[2023-02-25 12:39] VITALS: BP 126/76; PULSE 76; BMI 24.8
== END 2023-02-25 13:08 | disposition home or self-care (01) ==
PROVIDERS: PCP Internal Medicine; Referring Provider Internal Medicine; Visit Provider Internal Medicine Gastroenterology
DX: R79.89 Other specified abnormal findings of blood chemistry (principal); D50.9 Iron deficiency anemia, unspecified; K21.9 Gastro-esophageal reflux disease without esophagitis; D12.6 Benign neoplasm of colon, unspecified; K59.09 Other constipation; R14.0 Abdominal distension (gaseous)
CPT/HCPCS: 99214

== ENCOUNTER 2023-02-25 12:33 | Outpatient (REF) | payer OTHER, SELFPAY ==
[2023-02-25 13:29] LABS: MANUAL DIFF FLAG NO
[2023-02-25 13:31] LABS: Basophils Absolute Auto 0.1 X10*3/uL (0.0-0.2); Basophils Percent Auto 1.7 % (0-2); Eosinophils Absolute Auto 0.3 X10*3/uL (0.0-0.4); Eosinophils Percent Auto 5.4 % (0-4); Hematocrit 39.2 % (42.0-52.0); Hemoglobin 13.2 g/dl (14.0-18.0); Imm Gran Abs Auto 0.02 X10*3/uL (0.00-0.03); Imm Gran Pct Auto 0.3 % (0.0-0.4); Lymphocytes Absolute Auto 2.5 X10*3/uL (1.2-4.9); Lymphocytes Percent Auto 41.3 % (20-40); Mean Corpuscular HGB Conc 33.7 g/dl (31.0-36.0); Mean Corpuscular Volume 77.2 fL (80.0-98.0); Mean Platelet Volume 9.7 fL (9.4-12.4); Monocytes Absolute Auto 0.6 X10*3/uL (0.1-1.2); Monocytes Percent Auto 9.9 % (2-11); Neutrophils Absolute Auto 2.5 x10*3/uL (2.0-8.3); Neutrophils Percent Auto 41.4 % (45-73); Platelet Count 279 X10*3/uL (160-400); Red Blood Count 5.08 X10*6/uL (4.60-5.80)
[2023-02-25 13:38] LABS: INTERNATIONAL NORM RATIO 1.1 (0.9-1.1); Prothrombin Time 13.2 SEC (11.1-13.3)
[2023-02-25 14:06] LABS: Alanine Aminotransferase 41 U/L (0-40); Albumin Level 4.5 g/dL (3.5-5.0); Alkaline Phosphatase 93 U/L (39-117); Aspartate Amino Transferase 33 U/L (5-37); Bilirubin Direct 0.1 mg/dL (0.0-0.5); Bilirubin Total 0.4 mg/dL (0.0-1.0); Iron 111 mcg/dL (45-160); Percent Iron Saturation 38 % (15-50); Total Iron Binding Capacity 293 mcg/dL (228-428); Unsaturated Iron Binding 182 ug/dL
[2023-02-25 14:24] LABS: Ferritin 51 ng/mL (20-250)
[2023-02-26 08:03] LABS: Hepatitis A Antibody IgG REACTIVE (Nonreactive); ~Hepatitis A Antibody IgG 12.03 S/CO (0.00-0.99)
[2023-02-26 08:20] LABS: HBS Num1 0.32 mIU/mL (0-7.99); HBc Num1 0.13 S/CO (0.00-0.79); Hepatitis B Core Antibody Nonreactive (Nonreactive); ~HepC Num1 0.11 S/CO (0.00-0.79); ~Hepatitis B Surface Antibody NONREACTIVE (Nonreactive); ~Hepatitis C Antibody Nonreactive (Nonreactive)
[2023-02-26 08:44] LABS: HBsAGNum1 0.23 S/CO (0.00-0.99); Hepatitis B Surface Antigen Negative (Negative)
[2023-03-01 15:49] LABS: Immunoglobulin A 290 mg/dL (47-310)
[2023-03-01 22:13] LABS: Transglutaminase IgA <1.0 U/mL
[2023-03-03 11:08] LABS: Anti Nuclear Antibody Screen NEGATIVE (NEGATIVE)
== END 2023-02-25 12:34 | disposition home or self-care (01) ==
LOC: HO.LAB 12:33
PROVIDERS: PCP Internal Medicine; Visit Provider Internal Medicine Gastroenterology
DX: R79.89 Other specified abnormal findings of blood chemistry (principal); D50.9 Iron deficiency anemia, unspecified; K21.9 Gastro-esophageal reflux disease without esophagitis; D12.6 Benign neoplasm of colon, unspecified; K59.09 Other constipation; R14.0 Abdominal distension (gaseous); Z79.899 Other long term (current) drug therapy
CPT/HCPCS: 36415; 80076; 82728; 82784; 83540; 85025; 85610; 86038; 86364; 86704; 86706; 86708; 86803; 87340; 99212

== ENCOUNTER 2023-03-25 11:49 | Outpatient (REF) | payer OTHER, SELFPAY ==
[2023-03-25 14:58] LABS: Alanine Aminotransferase 32 U/L (0-40); Albumin Level 4.3 g/dL (3.5-5.0); Alkaline Phosphatase 92 U/L (39-117); Anion Gap 11 (12-20); Aspartate Amino Transferase 28 U/L (5-37); Bilirubin Total 0.3 mg/dL (0.0-1.0); Blood Urea Nitrogen 14 mg/dL (9-16); Calcium 9.5 mg/dL (8.4-10.2); Carbon Dioxide 29 mmol/L (22-29); Chloride 105 mmol/L (96-108); Cholesterol 204 mg/dL (<200); Estimated Glomerular Filt Rate > 60; Glucose Random 122 mg/dL (60-115); HDL Cholesterol 37 mg/dL (>40); LDL Cholesterol Calculated 120 mg/dL (<100); Potassium 3.7 mmol/L (3.3-5.1); Sodium 141 mmol/L (135-145); Total Protein 7.8 g/dL (6.5-8.0); Triglycerides 239 mg/dL (<150)
== END 2023-03-25 11:50 | disposition home or self-care (01) ==
LOC: HO.CHCLDS 11:49
PROVIDERS: Visit Provider Internal Medicine
DX: E78.2 Mixed hyperlipidemia (principal)
CPT/HCPCS: 36415; 80053; 80061

== ENCOUNTER 2023-09-24 12:39 | Outpatient (REF) | payer OTHER, SELFPAY ==
[2023-09-24 14:00] LABS: MANUAL DIFF FLAG NO
[2023-09-24 14:06] LABS: Basophils Absolute Auto 0.1 X10*3/uL (0.0-0.2); Basophils Percent Auto 1.3 % (0-2); Eosinophils Absolute Auto 0.4 X10*3/uL (0.0-0.4); Eosinophils Percent Auto 5.5 % (0-4); Hematocrit 38.8 % (42.0-52.0); Hemoglobin 12.8 g/dl (14.0-18.0); Imm Gran Abs Auto 0.02 X10*3/uL (0.00-0.03); Imm Gran Pct Auto 0.3 % (0.0-0.4); Lymphocytes Absolute Auto 2.5 X10*3/uL (1.2-4.9); Lymphocytes Percent Auto 37.4 % (20-40); Mean Corpuscular Hemoglobin 24.7 pg (27.0-33.0); Mean Corpuscular Volume 74.9 fL (80.0-98.0); Mean Platelet Volume 10.8 fL (9.4-12.4); Monocytes Absolute Auto 0.6 X10*3/uL (0.1-1.2); Monocytes Percent Auto 8.8 % (2-11); Neutrophils Absolute Auto 3.2 x10*3/uL (2.0-8.3); Neutrophils Percent Auto 46.7 % (45-73); Platelet Count 272 X10*3/uL (160-400); Red Blood Count 5.18 X10*6/uL (4.60-5.80); Red Cell Distribution Width 14.1 % (11.0-16.0); White Blood Count 6.7 X10*3/uL (4.8-10.8)
[2023-09-24 14:18] LABS: Alanine Aminotransferase 47 U/L (0-40); Albumin Level 4.5 g/dL (3.5-5.0); Alkaline Phosphatase 88 U/L (39-117); Anion Gap 10 (12-20); Aspartate Amino Transferase 37 U/L (5-37); Bilirubin Total 0.6 mg/dL (0.0-1.0); Blood Urea Nitrogen 11 mg/dL (9-16); Calcium 9.7 mg/dL (8.4-10.2); Carbon Dioxide 29 mmol/L (22-29); Chloride 108 mmol/L (96-108); Cholesterol 136 mg/dL (<200); Estimated Glomerular Filt Rate > 60; Glucose Random 93 mg/dL (60-115); HDL Cholesterol 39 mg/dL (>40); LDL Cholesterol Calculated 78 mg/dL (<100); Potassium 4.1 mmol/L (3.3-5.1); Sodium 143 mmol/L (135-145); Total Protein 7.8 g/dL (6.5-8.0); Triglycerides 97 mg/dL (<150)
== END 2023-09-24 12:40 | disposition home or self-care (01) ==
LOC: HO.CHCLDS 12:39
PROVIDERS: Visit Provider Internal Medicine
DX: E78.2 Mixed hyperlipidemia (principal)
CPT/HCPCS: 36415; 80053; 80061; 85025

== ENCOUNTER 2023-10-15 12:48 | Outpatient (REF) | payer OTHER, SELFPAY ==
[2023-10-15 15:34] LABS: Iron 152 mcg/dL (45-160); Percent Iron Saturation 50 % (15-50); Total Iron Binding Capacity 303 mcg/dL (228-428); Unsaturated Iron Binding 151 ug/dL
[2023-10-15 16:12] LABS: Folate 13.1 ng/mL (> or = 4.0); Vitamin B12 358 pg/mL (200-900)
== END 2023-10-15 12:49 | disposition home or self-care (01) ==
LOC: HO.CHCLDS 12:48
PROVIDERS: Visit Provider Internal Medicine
DX: D64.9 Anemia, unspecified (principal)
CPT/HCPCS: 36415; 82607; 82746; 83540

== ENCOUNTER 2023-12-29 13:47 | Outpatient (REF) | payer OTHER, SELFPAY | END 2023-12-29 13:48 | disposition home or self-care (01) | LOC: HO.CT 13:47 | PROVIDERS: PCP Internal Medicine; Visit Provider Physician Assistant Medical | DX: Z12.2 Encounter for screening for malignant neoplasm of respiratory organs (principal); F17.210 Nicotine dependence, cigarettes, uncomplicated | CPT/HCPCS: 71271 ==

== ENCOUNTER 2024-10-02 11:18 | Outpatient (REF) | payer OTHER, SELFPAY ==
--- OUTSIDE RECORDS SUMMARY | 2024-10-02 12:36 | XMS_ITS | Encounter Summary ---
Author Organization [employer] Address [address] [place] [address] [address] [place] [address] Care Team Providers Care Livestock Speculator Name Role Phone Shine Gold MD Primary Care Prov ider Reason for Visit * Reason Comments Med Refill Encounter Details Date Type Department Care Team (Late st Contact Info) Description 05/21/2022 Refill [facility] [address] [place] [address] Shine Gold MD [address] [place] [address] Social History Tobacco Use Types Packs/Day Years Used Date Smoking Tobacco: Never Assessed Sex and Gender Information Value Date Recorded Sex Assigned at Male 12/15/2021 10:28 AM EDT Legal Sex Male 10:28 AM EDT Gender Identity Male 12/15/2021 10:28 AM EDT Sexual Orientation Straight 12/15/2021 10 :28 AM EDT documented as of this encounter Plan of Treatment Upcoming Encounters Date Type Department Care Team (Late st Contact Info) Description 11/13/2024 11:30 AM EDT Telemedicine [facility] [address] [place] [address] Shine Gold MD [address] [place] [address] documented as of this encounter Visit Diagnoses Not on filedocumented in this encounter Care Teams Livestock Speculator Relationship Specialty Start Date End Date Shine Gold MD [address] [place] [address] PCP - General Internal Medicine 07/07/19 documented as of this encounter
--- OUTSIDE RECORDS SUMMARY | 2024-10-02 12:36 | XMS_ITS | Clinical Summary ---
Author Organization [facility] it Address [address] [place] [address] Care Team Providers Care Processing Clerk Name Role Phone Unavailable Primary Care Provider Unavailabl e Social History Tobacco Use Types Packs/Day Years Used Date Smoking Tobacco: Never Assessed Sex and Gender Information Value Date Recorded Sex Assigned at Not on file Legal Sex Male 9:28 AM EST Gender Identity Not on file Sexual Orientation Not on file Plan of Treatment Health Maintenance Due Date Last Done Comments DTaP,Tdap,and Td Vaccines (1 - Tdap) 1988 Hepatitis B Vaccines (1 of 3 - 19+ 3-dose series) 1988 Pneumococcal Vaccine: 50+ Ye ars (1 of 1 - PCV) 08/07/2019 Zoster Vaccines (1 of 2) 08/07/2019 Cholesterol Screening (Lipid Panel) 09/18/2023 Colorectal Cancer Screening: Colonoscopy 09/18/2023 HIV Screening 09/18/2023 Hepatitis C Screening 09/18/2023 Social Influencers of Health Screening 09/18/2023 COVID-19 Vaccine ( - 2023-2 5 season) 2023 Depression Screening 02/16/2024 Influenza Vaccine (#1) 2024 HIB Vaccines Aged Out No longer eligi ble based on patient's age to complete this topic HPV Vaccines Aged Out No longer eligi ble based on patient's age to complete this topic Hepatitis A Vaccines Aged Out No long er eligible based on patient's age to complete this topic IPV Vaccines Aged Out No longer eligi ble based on patient's age to complete this topic MMR Vaccines Aged Out No longer eligi ble based on patient's age to complete this topic Meningococcal ACWY Vaccine Aged Out N o longer eligible based on patient's age to complete this topic Meningococcal B Vaccine Aged Out No l onger eligible based on patient's age to complete this topic RSV Immunization Patients Un katharina 20 months Aged Out No longer eligible b ased on patient's age to complete this topic Varicella Vaccines Aged Out No longer eligible based on patient's age to complete this topic
[2024-10-02 14:03] LABS: MANUAL DIFF FLAG NO
[2024-10-02 14:14] LABS: Hematocrit 39.4 % (42.0-52.0); Hemoglobin 13.0 g/dl (14.0-18.0); Imm Gran Abs Auto 0.01 X10*3/uL (0.00-0.03); Imm Gran Pct Auto 0.1 % (0.0-0.4); Lymphocytes Absolute Auto 2.9 X10*3/uL (1.2-4.9); Mean Corpuscular HGB Conc 33.0 g/dl (31.0-36.0); Mean Corpuscular Hemoglobin 24.5 pg (27.0-33.0); Mean Corpuscular Volume 74.2 fL (80.0-98.0); NRBC Abs Auto 0.000 X10*3/uL (0.0-0.012); NRBC Pct Auto 0.0 /100WBC (0.0-0.2); Platelet Count 269 X10*3/uL (160-400); Red Blood Count 5.31 X10*6/uL (4.60-5.80); White Blood Count 6.8 X10*3/uL (4.8-10.8)
[2024-10-02 14:39] LABS: Alanine Aminotransferase 33 U/L (0-40); Albumin Level 4.6 g/dL (3.5-5.0); Alkaline Phosphatase 96 U/L (39-117); Anion Gap 12 (12-20); Aspartate Amino Transferase 32 U/L (5-37); Blood Urea Nitrogen 15 mg/dL (9-16); Calcium 9.3 mg/dL (8.4-10.2); Carbon Dioxide 27 mmol/L (22-29); Chloride 108 mmol/L (96-108); Cholesterol 126 mg/dL (<200); Estimated Glomerular Filt Rate > 60; HDL Cholesterol 29 mg/dL (>40); Potassium 3.9 mmol/L (3.3-5.1); Sodium 143 mmol/L (135-145); Total Protein 7.5 g/dL (6.5-8.0); Triglycerides 131 mg/dL (<150)
[2024-10-02 14:45] LABS: PSA,Total (Free>4and<10) 0.30 ng/mL (0.00-4.00)
[2024-10-02 14:48] LABS: Hemoglobin A1C 145.4084 umol/L; Total Hemoglobin (HGBA1C) 3457.0409 umol/L
== END 2024-10-02 11:19 | disposition home or self-care (01) ==
LOC: HO.CHCLDS 11:18
PROVIDERS: Visit Provider Internal Medicine
DX: E78.2 Mixed hyperlipidemia (principal); Z12.5 Encounter for screening for malignant neoplasm of prostate
CPT/HCPCS: 36415; 80053; 80061; 83036; 84153; 84443; 85025